=== PATIENT | female | born 1990 | race African-American/Black ===

== ENCOUNTER 2022-06-23 07:03 | Emergency (ER) | payer OTHER, SELFPAY ==
[2022-06-23 07:22] VITALS: BP 139/89; PULSE 101; RESP 20; TEMP 36.7; O2SAT 100
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
[2022-06-23] MEDS: ACETAMINOPHEN 500 MG TABLET 1000 MG PO (07:42)
[2022-06-23] MEDS: TETANUS,DIPHTHERIA,AC PERTUSSIS ADULT (0.5 ML) BOOSTRIX IM (07:42)
[2022-06-23] MEDS: MUPIROCIN 2% OINT 22 GM TUBE 1 APPLIC TOPICAL (08:06)
[2022-06-23 08:07] VITALS: BP 122/87; PULSE 90; RESP 18; O2SAT 99
== END 2022-06-23 08:08 | disposition home or self-care (01) ==
PROVIDERS: Emergency Provider Preventive Medicine Aerospace Medicine
DX: T23.261A Burn of second degree of back of right hand, initial encounter (principal); T22.121A Burn of first degree of right elbow, initial encounter; T31.0 Burns involving less than 10% of body surface; X10.2XXA Contact with fats and cooking oils, initial encounter; Z23 Encounter for immunization
CPT/HCPCS: 90471; 90715; 99283; A9270